=== PATIENT | female | born 1975 | race Caucasian/White ===

== ENCOUNTER 2018-05-03 13:20 | Emergency (ER) | payer SELFPAY ==
[~2018-05-03] VITALS: Ht 180.3 cm; Wt 113.6 kg
[2018-05-03 13:23] VITALS: TEMP 98.2
[2018-05-03] MEDS ORDERED: MULTI VITAMINS1 TAB PO (13:37)
[2018-05-03] MEDS ORDERED: PROBIOTIC FORMU1 CAP PO (13:38)
[2018-05-03] MEDS ORDERED: TYLENOL 500MG500 MG PO (13:38)
[2018-05-03 13:56] LABS: BASO # 0.1 (0.0-0.2); BASO % 0.7 % (0.0-2.0); EOS # 0.2 (0.0-0.7); EOS % 3.4 % (0-4.0); GRAN # 4.8 (1.4-6.5); GRAN % 70.7 % (42.2-75.2); HEMATOCRIT 44.8 % (37.0-47.0); HEMOGLOBIN 15.3 g/dl (12.5-16.0); LYMPH # 1.2 (1.2-3.4); LYMPH % 18.2 % (20.0-51.0); MEAN CELL VOLUME 85 fl (80.0-100.0); MEAN CORPUSCULAR HEMOGLOBIN 29 pg (27.0-31.0); MEAN CORPUSCULAR HGB CONC 34 g/dl (33.0-37.0); MEAN PLATELET VOLUME 9.2 fl (7.4-10.4); MONO # 0.5 (0.1-0.6); MONO % 6.6 % (1.7-9.3); PLATELET COUNT 381 K/mm3 (130-400); REDCELL DISTRIBUTION WIDTH-CV 14.1 % (11.5-14.5)
[2018-05-03 14:11] LABS: ALBUMIN 5.2 gm/dL (3.5-5.0); BILIRUBIN,TOTAL 0.4 mg/dL (0.0-1.0); C-REACTIVE PROTEIN 1.6 mg/dL (0.0-0.9); CALCIUM 10.2 mg/dL (8.4-10.2); CREATININE, serum 0.53 mg/dL (0.52-1.25); POTASSIUM 4.2 mmol/L (3.4-5.0); TOTAL PROTEIN 8.6 gm/dL (6.4-8.2)
[2018-05-03 14:30] LABS: COLLECTION METHOD CLEAN CATCH
[2018-05-03 14:34] LABS: PH 6 (5-8); SQUAMOUS EPITHELIAL 0-2 /hpf; URINE APPEARANCE Clear; URINE BACTERIA None Seen /hpf; URINE BILIRUBIN Negative (NEGATIVE); URINE BLOOD Negative (NEGATIVE); URINE COLOR Straw; URINE GLUCOSE 1+ (NEGATIVE); URINE KETONE Negative (NEGATIVE); URINE LEUKOCYTE ESTERASE Trace (NEGATIVE); URINE NITRATE Negative (NEGATIVE); URINE PROTEIN(semi-quant) Negative (NEGATIVE); URINE RBC 0-2 /hpf; URINE UROBILINOGEN Negative (NEGATIVE)
[2018-05-03] MEDS ORDERED: NORCO 325 MG-7.1 TAB PO (16:22)
[2018-05-03] MEDS ORDERED: CIPRO 500MG TA500 MG PO (16:22)
[2018-05-03] MEDS ORDERED: FLAGYL500 MG PO (16:22)
[2018-05-03 17:27] VITALS: BP 115/79; PULSE 113
== END 2018-05-03 17:28 | disposition home or self-care (01) ==
LOC: COL.ER 13:20
PROVIDERS: Physician Assistant
DX: R19.7 Diarrhea, unspecified (principal); R10.9 Unspecified abdominal pain; Z90.49 Acquired absence of other specified parts of digestive tract; Z90.710 Acquired absence of both cervix and uterus; Z90.89 Acquired absence of other organs
CPT/HCPCS: J1885; J2270; J2405; J7030; Q9967